=== PATIENT | female | born 1965 | race Caucasian/White ===

== ENCOUNTER → 2019-04-07 15:00 | Outpatient (BNVA) | payer OTHER, SELFPAY | PROVIDERS: Family Provider Internal Medicine; PCP Internal Medicine; Visit Provider Podiatrist Foot & Ankle Surgery | DX: B35.1 Tinea unguium (principal) | CPT/HCPCS: 87210 ==

== ENCOUNTER 2019-12-09 08:52 | Outpatient (CLI) | payer OTHER, SELFPAY ==
--- NOTE | 2019-12-09 09:05 | MM_ITS ---
WS: [id number] BILATERAL DIGITAL SCREENING MAMMOGRAPHY WITH CAD CLINICAL INFORMATION: SCREENING HISTORY: Screening mammogram. No current complaints. COMPARISON: TECHNIQUE: Bilateral CC and MLO views. FINDINGS: Scattered fibroglandular densities bilaterally. No suspicious focal mass, asymmetry, calcifications, or architectural distortion. No evidence of malignancy. MM/[id number] IMPRESSION: BI-RADS: 1-Negative FOLLOW UP: 1 Year Follow-up Recommend return to annual screening mammography.
== END 2019-12-09 08:53 | disposition home or self-care (01) ==
LOC: RADSHAW 08:54
PROVIDERS: PCP Internal Medicine; Visit Provider Nurse Practitioner Family
DX: Z12.31 Encounter for screening mammogram for malignant neoplasm of breast (principal)
CPT/HCPCS: 77067

== ENCOUNTER 2023-08-27 12:24 | Outpatient (CLI) | payer OTHER, SELFPAY ==
--- NOTE | 2023-08-27 12:20 | MM_ITS ---
WS: [id number] BILATERAL 3D TOMOSYNTHESIS DIGITAL SCREENING MAMMOGRAPHY WITH CAD CLINICAL INFORMATION: SCREENING HISTORY: Screening mammogram. No current complaints. COMPARISON: 2020 TECHNIQUE: Bilateral CC and MLO views. FINDINGS: Scattered fibroglandular densities bilaterally. No suspicious focal mass, asymmetry, calcifications, or architectural distortion. No evidence of malignancy. MM/[id number] IMPRESSION: BI-RADS: 1-Negative FOLLOW UP: 1 Year Follow-up Recommend return to annual screening mammography.
== END 2023-08-27 12:25 | disposition home or self-care (01) ==
LOC: MOBLMAM 12:30
PROVIDERS: PCP Nurse Practitioner Family; Visit Provider Nurse Practitioner Family
DX: Z12.31 Encounter for screening mammogram for malignant neoplasm of breast (principal); R92.323 Mammographic fibroglandular density, bilateral breasts
CPT/HCPCS: 77063; 77067

== ENCOUNTER 2023-11-19 07:36 | Day surgery (SDC) | payer OTHER, SELFPAY ==
[2023-11-19 08:15] VITALS: BP 130/90; PULSE 89; RESP 17; TEMP 36.2; O2SAT 95; BMI 24.7
--- NOTE | 2023-11-19 08:15 | P.HP_ITS ---
Providers/Chief Complaint Primary Care Provider: Adela Perez MD Chief Complaint: Z80.0 History of Present Illness Solange Mendez is a 58 year old female Review of Systems 2 General: Reports: 10 or more systems reviewed and unremarkable except in HPI and below Medications/Allergies Home Medications Medication Instructions Recorded Confirmed Last Taken Type amlodipine 5 mg PO DAILY 04/07/19 11/19/23 11/19/23 History hydrochlorothiazide 25 mg tablet 25 mg PO QAM 04/07/19 11/19/23 11/19/23 History pantoprazole 40 mg tablet,delayed 40 mg PO BID 90 days #180 tabs 11/19/23 Unknown Rx release (Protonix) Allergies Allergy/AdvReac Type Severity Reaction Status Date / Time acetaminophen [From Tylenol] Allergy rash Verified 11/17/23 11:18 penicillamine Allergy rash Verified 11/17/23 11:18 tetracycline Allergy rash Verified 11/17/23 11:18 surgical scrub Allergy rash Uncoded 11/17/23 11:18 PFSH Acute PFSH: Medical History (Updated 08/25/23 @ 12:02 by Shadi Rodas DO) Chronic idiopathic constipation Family history of colon cancer Hypertension Surgical History H/O spinal fusion H/O tubal ligation Family History Family/Other Stroke Heart attack Cancer Mother Diabetes Father Colon cancer Denies family history of CAD (coronary artery disease) Clotting disorder Dementia Hyperlipidemia Psychiatric illness Chronic kidney disease (CKD) Suicide Anesthesia complication Bleeding disorder Family history of premature coronary artery disease Lung disease Hypertension Social History Smoking and tobacco/nicotine status: never used tobacco/nicotine Alcohol intake: never Substance/Drug Use: never Current occupational status: employed Current occupation: Teacher Vitals/I&O/Wt Last Vital Signs Temp 97.0 F L 11/19/23 09:27 Pulse 84 11/19/23 09:40 Resp 18 11/19/23 09:40 BP 117/75 11/19/23 09:40 Pulse Ox 95 11/19/23 09:40 O2 Del Method Room Air 11/19/23 09:40 11/18/23 11/19/23 11/19/23 22:59 06:59 14:59 Intake Total 400 / 400 Balance 400 / 400 Weight last 48 hrs Weight 168 lb A&P Assessment and plan (1) Positive colorectal cancer screening using Cologuard test: Plan A&P Assessment and plan (1) Positive colorectal cancer screening using Cologuard test: (2) Family history of colon cancer: (3) Abdominal pain: (4) Chronic idiopathic constipation: Plan EGD and colonoscopy Attestations Medical Necessity Statement*: HOME Coding Level of Care Code Acute Code for Chg Fwd Diagnoses Positive colorectal cancer screening using Cologuard test R19.5
--- NOTE | 2023-11-19 08:18 | PM.PN ---
A&P Assessment and plan (1) Positive colorectal cancer screening using Cologuard test: (2) Family history of colon cancer: (3) Abdominal pain: (4) Chronic idiopathic constipation: Plan EGD and colonoscopy Attestations Medical Necessity Statement*: Home Coding Level of Care Code Acute Code for Chg Fwd Diagnoses Positive colorectal cancer screening using Cologuard test R19.5 Family history of colon cancer Z80.0 Abdominal pain R10.9 Chronic idiopathic constipation K59.04
--- NOTE | 2023-11-19 08:47 | ANES.PREANE2 ---
Pre-Anesthetic Assessment Height/Weight: Height 1.75 m Operation Date: 11/19/23 08:30 Proposed Procedures p EGD 06957, 15954, G0105, R19.5, Z80.0, R10.9, K59.04(Not Applicable) - Shadi Rodas DO s Colonoscopy(Not Applicable) - Shadi Rodas DO Familial anesthetic complications: N/V, got really hot after surgery. Denies being told about MH or need of further testing Was Beta Dony taken within 24 hours: N/A Was Clonidine taken within 24 hours: N/A Social No alcohol and No tobacco Exam alert, oriented x 3, clear to auscultation bilaterally and regular rate & rhythm Airway Submandibular: within normal limits Cervical ROM: Other (ACDF surgery, full ROM) Mallampati: Class II Comments: Comments: Top retainer, non removable History/ROS No significant history except as noted and No significant complaints Pulmonary None reported CV/HEM Arrythmia, Hypertension and Palpitations None reported Hepatic None reported GI None reported Metabolic None reported Musc/skel Osteoarthritis/DJD Neuropsych Headache and Neuropathy Anesthetic Plan ASA status: 2 Anesthesia: Anesthesia Evaluation, General and MAC Risk of > 500 ml blood loss (7ml/kg in children): No Medications/Allergies Home Medications Medication Instructions Recorded Confirmed Last Taken Type amlodipine 5 mg PO DAILY 04/07/19 11/19/23 11/19/23 History hydrochlorothiazide 25 mg tablet 25 mg PO QAM 04/07/19 11/19/23 11/19/23 History Allergies Allergy/AdvReac Type Severity Reaction Status Date / Time acetaminophen [From Tylenol] Allergy rash Verified 11/17/23 11:18 penicillamine Allergy rash Verified 11/17/23 11:18 tetracycline Allergy rash Verified 11/17/23 11:18 surgical scrub Allergy rash Uncoded 11/17/23 11:18 [facility] Anesthesia Medical History (Updated 08/25/23 @ 12:02 by Shadi Rodas DO) Chronic idiopathic constipation Family history of colon cancer Hypertension Surgical History H/O spinal fusion H/O tubal ligation Family History Family/Other Stroke Heart attack Cancer Mother Diabetes Father Colon cancer Denies family history of CAD (coronary artery disease) Clotting disorder Dementia Hyperlipidemia Psychiatric illness Chronic kidney disease (CKD) Suicide Anesthesia complication Bleeding disorder Family history of premature coronary artery disease Lung disease Hypertension Social History Smoking and tobacco/nicotine status: never used tobacco/nicotine Alcohol intake: never Substance/Drug Use: never Current occupational status: employed Current occupation: Teacher Data Anesthesia Cardiac Studies: No Data to Display
[2023-11-19] MEDS: sodium chloride 0.9% 1,000 ML 30 ML IV (08:56)
[2023-11-19] MEDS: EPINEPHrine 1 mg/mL INJ XX (09:14)
[2023-11-19 09:27] VITALS: BP 109/64; PULSE 76; RESP 12; TEMP 36.1; O2SAT 98
[2023-11-19 09:30] VITALS: BP 106/93; PULSE 78; RESP 16; O2SAT 95
[2023-11-19 09:40] VITALS: BP 117/75; PULSE 84; RESP 18; O2SAT 95
--- NOTE | 2023-11-19 10:05 | ANE.PACU2 ---
Inpatient post-anesthesia follow up: Airway intact: Yes Vital signs: Temperature 97.0 F Pulse Rate 84 Respiratory Rate 18 Blood Pressure 117/75 Pulse Oximetry 95 Oxygen Delivery Me thod Room Air Oxygen Flow Rate Fraction of Inspir ed Oxygen Hydration adequate: Yes Nausea and vomiting: No Pain level: 1 Mental status: Baseline
== END 2023-11-19 10:07 | disposition home or self-care (01) ==
PROVIDERS: PCP Internal Medicine; Visit Provider Surgery
PROC: 0DJ08ZZ Inspection of Upper Intestinal Tract, Via Natural or Artificial Opening Endoscopic (ICD-10-PCS; CPT 43235; principal; 2023-11-19 08:30)
PROC: 0DJD8ZZ Inspection of Lower Intestinal Tract, Via Natural or Artificial Opening Endoscopic (ICD-10-PCS; CPT 45378; 2023-11-19 08:30)
DX: K59.04 Chronic idiopathic constipation (principal); Z86.010 Personal history of colon polyps; K21.00 Gastro-esophageal reflux disease with esophagitis, without bleeding; I10 Essential (primary) hypertension; Z80.0 Family history of malignant neoplasm of digestive organs; K57.30 Diverticulosis of large intestine without perforation or abscess without bleeding; K29.70 Gastritis, unspecified, without bleeding
CPT/HCPCS: 43239; 45378; 88305; 88342; J0171; J2704; J7030